=== PATIENT | male | born 1985 ===

== ENCOUNTER 2017-12-21 10:55 | Emergency (ER) | payer OTHER ==
[2017-12-21 11:13] VITALS: BP 150/93
--- NOTE | 2017-12-21 11:42 | UC ---
Throat Pain/Nasal Dexter HPI - HPI Summary HPI Summary: Pt c/o gradual onset on sinus congestion, pressure and pain X 1 week. Pt states that his head feels congested and heavy like a "bowling ball" , - History of Current Complaint Chief Complaint: UCGeneralIllness Stated Complaint: SINUSES Time Seen by Provider: 12/21/17 11:36 Hx Obtained From: Patient Onset/Duration: Gradual Onset, Lasting Days Severity: Moderate Pain Intensity: 0 Associated Signs & Symptoms: Positive: Sinus Discomfort - Epiglottits Risk Factors Epiglottis Risk Factors: Negative - Allergies/Home Medications Allergies/Adverse Reactions: Allergies Allergy/AdvReac Type Severity Reaction Status Date / Time Penicillins Allergy Anaphylatic Verified 12/21/17 11:08 Shock Home Medications: Home Medications Mv-Mn/C/Glutamin/Lysin/[id number] [Airborne Gummies] 3 chw PO DAILY 12/21/17 [ History Confirmed 12/21/17] guaiFENesin [Mucinex] 600 mg PO BID 12/21/17 [History Confirmed 12/21/17] PMH/Surg Hx/FS Hx/Imm Hx Previously Healthy: Yes - Surgical History Surgical History: None - Family History Known Family History: Positive: Cardiac Disease - Social History Occupation: Employed Full-time Lives: With Family Alcohol Use: Occasionally Substance Use Type: None Smoking Status (MU): Never Smoked Tobacco Have You Smoked in the Last Year: No Review of Systems Constitutional: Negative Skin: Negative Eyes: Negative ENT: Sinus Congestion, Sinus Pain/Tenderness Respiratory: Cough Cardiovascular: Negative Gastrointestinal: Negative Genitourinary: Negative Motor: Negative Neurovascular: Negative Musculoskeletal: Negative Neurological: Negative Psychological: Negative Is Patient Immunocompromised?: No All Other Systems Reviewed And Are Negative: Yes Physical Exam Triage Information Reviewed: Yes Appearance: Ill-Appearing Vital Signs: Initial Vital Signs Temp 98.4 F 12/21/17 11:04 Pulse 95 12/21/17 11:04 Resp 18 12/21/17 11:04 BP 150/93 12/21/17 11:04 Pulse Ox 98 12/21/17 11:04 Vital Signs Reviewed: Yes Eye Exam: Normal ENT Exam: Other ENT: Positive: Nasal congestion, Sinus tenderness Dental Exam: Normal Neck exam: Normal Respiratory Exam: Normal Cardiovascular Exam: Normal Musculoskeletal Exam: Normal Neurological Exam: Normal Psychological Exam: Normal Skin Exam: Normal Throat Pain/Nasal Course/Dx - Differential Dx/Diagnosis Differential Diagnosis/HQI/PQRI: Sinusitis Provider Diagnoses: sinusitis Discharge - Sign-Out/Discharge Documenting (check all that apply): Discharge/Admit/Transfer - Discharge Plan Condition: Stable Disposition: HOME Prescriptions: Azithromycin TAB* [Zithromax TAB (Z-MAGUI) 250 mg #6 tabs] 2 tab PO .TODAY, THEN 1 DAILY #1 magui Fexofenadine/Pseudoephedrine [Shana-D 24 Hour Tablet] 1 each PO DAILY #10 tab.er.24h Patient Education Materials: Sinusitis (ED) Referrals: Emir Solorzano MD [Primary Care Provider] - If Needed - Billing Disposition and Condition Condition: STABLE Disposition: HOME
== END 2017-12-21 11:48 | disposition home or self-care (01) ==
LOC: UCCORT 10:55
DX: J32.9 Chronic sinusitis, unspecified (principal); Z88.0 Allergy status to penicillin
CPT/HCPCS: 99212; G0463